=== PATIENT | female | born 1965 | race Caucasian/White ===

== ENCOUNTER 2021-12-24 10:33 | Observation (INO) | payer BC, MEDICAID ==
[2021-12-24] MEDS ORDERED: Magnesium Sulfate/Water 2 GM in Premix Bag 1 BAG IV ONE (13:11)
[2021-12-24] MEDS ORDERED: Sodium Chloride 0.9% 1,000 ML IV ONE (13:12)
[2021-12-24] MEDS ORDERED: Potassium Chloride 20 MEQ Tab.ER PO ONE (14:24)
[2021-12-24] MEDS ORDERED: Acetaminophen 325 MG Tab PO PRN (14:56)
[2021-12-24] MEDS ORDERED: Nicotine 14 MG/24 Hr Patch TRDERM ONE (14:58)
[2021-12-24] MEDS: Sodium Chloride 0.9% 1,000 ML IV SCH (16:25)
[2021-12-24] MEDS: Enoxaparin 40 MG/0.4 ML Syringe SUBCUT SCH (18:47)
[2021-12-24] MEDS ORDERED: atorvaSTATin 40 MG Tab PO SCH (21:00)
[2021-12-24] MEDS ORDERED: Aspirin 325 MG Tab.EC PO SCH (21:00)
[2021-12-25] MEDS: Sodium Chloride 0.9% 1,000 ML IV SCH (02:32)
[2021-12-25] MEDS ORDERED: Nicotine 14 MG/24 Hr Patch TRDERM SCH (09:00)
[2021-12-25] MEDS: Enoxaparin 40 MG/0.4 ML Syringe SUBCUT SCH (09:29)
== END 2021-12-25 16:05 | disposition home or self-care (01) ==
LOC: JD.ED 10:33 → JD.MS 14:22
PROVIDERS: ADMIT Pediatrics; ATTEND Pediatrics
DX: R55 Syncope and collapse (principal); I36.1 Nonrheumatic tricuspid (valve) insufficiency; I34.0 Nonrheumatic mitral (valve) insufficiency; R94.31 Abnormal electrocardiogram [ECG] [EKG]; F17.210 Nicotine dependence, cigarettes, uncomplicated; E87.6 Hypokalemia; Z85.72 Personal history of non-Hodgkin lymphomas; Z79.82 Long term (current) use of aspirin; Z79.899 Other long term (current) drug therapy
CPT/HCPCS: 36415; 71045; 80048; 80053; 80061; 81001; 83690; 83735; 84484; 85025; 85379; 93005; 93306; 93880; A9270; J1650; J3475; J7030

== ENCOUNTER 2022-09-23 07:24 | Day surgery (SDC) | payer MEDICAID, OTHER ==
[~2022-09-23 07:24] MED LIST: Lactated Ringers 1,000 ML IV SCH; Sodium Chloride 0.9% 10 ML Syringe FLUSH PRN; Sodium Chloride 0.9% 10 ML Syringe FLUSH SCH
[2022-09-23] MEDS ORDERED: Ondansetron 4 MG/2 ML SDV IVPUSH PRN (07:46)
[2022-09-23] MEDS ORDERED: Midazolam 1 MG/ML 2 ML SDV ONE (08:25)
[2022-09-23] MEDS ORDERED: Lidocaine 1% 2 ML ONE (08:26)
[2022-09-23] MEDS ORDERED: Propofol 200 MG/20 ML SDV ONE (08:26)
== END 2022-09-23 09:45 | disposition home or self-care (01) ==
LOC: JD.SDS 07:24
PROVIDERS: ATTEND Surgery
DX: Z12.11 Encounter for screening for malignant neoplasm of colon (principal); D12.2 Benign neoplasm of ascending colon; C81.90 Hodgkin lymphoma, unspecified, unspecified site; F41.9 Anxiety disorder, unspecified; N63.0 Unspecified lump in unspecified breast; E78.5 Hyperlipidemia, unspecified; N20.0 Calculus of kidney; R76.8 Other specified abnormal immunological findings in serum; F17.210 Nicotine dependence, cigarettes, uncomplicated; Z88.5 Allergy status to narcotic agent; Z88.1 Allergy status to other antibiotic agents; Z79.899 Other long term (current) drug therapy; Z98.51 Tubal ligation status; Z90.89 Acquired absence of other organs
CPT/HCPCS: 45380; J2250; J2704; J7120; 00811; J3490